=== PATIENT | male | born 1955 | race Caucasian/White ===

== ENCOUNTER 2017-11-18 09:41 | Emergency (ER) | payer OTHER ==
[~2017-11-18] VITALS: Ht 188 cm; Wt 93.0 kg
[~2017-11-18 09:41] MED LIST: AMOXICILLIN 50500 M1; HYDROCODONE-APA1 TA1
[2017-11-18] MEDS ORDERED: NORVASC2.5 MG PO (09:53)
[2017-11-18] MEDS ORDERED: ASPIR 8181 MG PO (09:54)
[2017-11-18] MEDS ORDERED: LEVOTHYROXINE100 MC1 IV (09:54)
[2017-11-18] MEDS ORDERED: CYCLOBENZAPRINE5 MG PO (09:56)
[2017-11-18 10:21] LABS: NUCLEATED RBCS 0 /100WBC
[2017-11-18 10:23] LABS: ABSOLUTE BASOPHILS 0.1 thou/uL (0.0-0.2); ABSOLUTE MONOCYTES 0.8 thou/uL (0.0-1.2); ABSOLUTE NEUTROPHILS 4.3 thou/uL (1.6-8.1); EOSINOPHILS 0.8 %; HEMATOCRIT 47.4 % (42.0-52.0); LYMPHOCYTES 16.2 %; MCH 32.8 pg (26.0-34.0); MCHC 33.8 g/dL (28.0-37.0); MCV 97.1 fL (80.0-100.0); MONOCYTES 12.8 %; MPV 7.6 fl. (7.2-11.1); PLATELET COUNT* 157 thou/uL (150-400); POLYS 69.2 %; RBC 4.88 mil/uL (4.50-6.00); RDW-CV 12.7 % (10.5-14.5); WBC 6.1 thou/uL (4.0-11.0)
[2017-11-18 10:27] LABS: ANION GAP 5 mmol/L (7-16); BUN 11 mg/dL (7-18); CALCIUM 9.4 mg/dL (8.5-10.1); CHLORIDE 107 mmol/L (98-107); CO2 30 mmol/L (21-32); CREATININE 1.2 mg/dL (0.6-1.3); GLUCOSE 98 mg/dL (70-99); POTASSIUM 4.8 mmol/L (3.5-5.1); SODIUM 142 mmol/L (136-145)
[2017-11-18 10:28] LABS: INR 1.1; PROTIME 10.5 Seconds (9.20-11.50)
[2017-11-18 10:34] LABS: ALBUMIN 3.6 g/dL (3.4-5.0); ALKALINE PHOSPHATASE 66 U/L (46-116); SGOT 26 U/L (15-37); SGPT 40 U/L (30-65); TOTAL BILIRUBIN 0.5 mg/dL (<0.1-1.0); TROPONIN-I LEVEL <0.06 ng/mL (<0.06)
[2017-11-18] MEDS ORDERED: NORVASC5 MG PO (12:00)
[2017-11-18] MEDS ORDERED: CLONIDINE0.1 PO (12:36)
[2017-11-18] MEDS ORDERED: NORCO 5-325 TA1 EACH PO (12:36)
[2017-11-18] MEDS ORDERED: KEFLEX500 M1 PO (12:41)
[2017-11-18 12:57] VITALS: BP 134/77
--- NOTE | 2017-11-18 15:20 | EKG ---
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
== END 2017-11-18 12:59 | disposition home or self-care (01) ==
LOC: M.ERS 09:41
PROVIDERS: Personal Emergency Response Attendant
DX: I16.0 Hypertensive urgency (principal); G44.1 Vascular headache, not elsewhere classified; E78.00 Pure hypercholesterolemia, unspecified; Z88.6 Allergy status to analgesic agent